=== PATIENT | female | born 1960 | race Caucasian/White ===

== ENCOUNTER 2017-06-09 11:48 | Day surgery (SDC) | payer BC ==
[~2017-06-09] VITALS: Ht 182.9 cm; Wt 123.4 kg
[2017-06-09] MEDS ORDERED: PRAV20 (13:09)
[2017-06-09] MEDS ORDERED: HYDCHL50 (13:10)
[2017-06-09] MEDS ORDERED: LANS15EC (13:10)
[2017-06-09] MEDS ORDERED: XARELTO20 MG (13:10)
[2017-06-09] MEDS ORDERED: METF500 (13:11)
[2017-06-09] MEDS ORDERED: METO25ER (13:11)
[2017-06-09] MEDS ORDERED: FISH OIL 1,0001 EAC1 (13:11)
[2017-11-18] MEDS ORDERED: Lotrel 5-40 MG1 EACH PO (10:08)
[2017-11-18] MEDS ORDERED: MICROZIDE12.5 M1 PO (10:08)
[2017-11-18] MEDS ORDERED: Aygestin5 MG PO (10:08)
[2017-11-18] MEDS ORDERED: Estradiol1 EAC5 (10:09)
[2017-11-18] MEDS ORDERED: VITAMIN D32000 UNIT (10:09)
[2017-11-18] MEDS ORDERED: ASCO500 (10:09)
[2017-11-18] MEDS ORDERED: Aspir 8181 MG PO (10:10)
[2017-11-18] MEDS ORDERED: SIMV10 PO (10:10)
[2017-11-18] MEDS ORDERED: MIRALAX17 GM (10:10)
[2017-11-18] MEDS ORDERED: Ferosul325 MG (10:10)
[2017-11-18] MEDS ORDERED: BISA5EC (10:10)
== END 2017-06-09 14:53 | disposition home or self-care (01) ==
LOC: ORSCSDS 11:48
PROVIDERS: Internal Medicine Gastroenterology
PROC: 0DBK8ZX Excision of Ascending Colon, Via Natural or Artificial Opening Endoscopic, Diagnostic (ICD-10-PCS; principal; 2017-06-09 13:30)
PROC: 0DBM8ZX Excision of Descending Colon, Via Natural or Artificial Opening Endoscopic, Diagnostic (ICD-10-PCS; principal; 2017-06-09 13:30)
PROC: 0DBH8ZX Excision of Cecum, Via Natural or Artificial Opening Endoscopic, Diagnostic (ICD-10-PCS; principal; 2017-06-09 13:30)
DX: Z12.11 Encounter for screening for malignant neoplasm of colon (principal); D12.0 Benign neoplasm of cecum; D12.2 Benign neoplasm of ascending colon; D12.4 Benign neoplasm of descending colon; Z86.010 Personal history of colon polyps; K57.30 Diverticulosis of large intestine without perforation or abscess without bleeding; E11.9 Type 2 diabetes mellitus without complications; I48.91 Unspecified atrial fibrillation; I10 Essential (primary) hypertension; E66.9 Obesity, unspecified; Z68.37 Body mass index [BMI] 37.0-37.9, adult; Z79.01 Long term (current) use of anticoagulants; Z79.84 Long term (current) use of oral hypoglycemic drugs; Z79.899 Other long term (current) drug therapy
CPT/HCPCS: 82947; 88305; 93005; 93010; J2370; J7120

== ENCOUNTER 2017-11-24 13:32 | Day surgery (SDC) | payer BC ==
[~2017-11-24] VITALS: Ht 182.9 cm; Wt 125.2 kg
[~2017-11-24 13:32] MED LIST: ASCO500; Aspir 8181 MG PO; Aygestin5 MG PO; BISA5EC; Estradiol1 EAC5; FISH OIL 1,0001 EAC1; Ferosul325 MG; HYDCHL50; LANS15EC; Lotrel 5-40 MG1 EACH PO; METF500; METO25ER; MICROZIDE12.5 M1 PO; MIRALAX17 GM; PRAV20; SIMV10 PO; VITAMIN D32000 UNIT; XARELTO20 MG
[2017-11-24] MEDS ORDERED: XARELTO20 MG (14:11)
[2017-11-24] MEDS ORDERED: CARV25 (14:12)
[2017-11-24] MEDS ORDERED: METF500C (14:12)
[2017-11-24] MEDS ORDERED: ENTRESTO 24 MG1 EACH (14:12)
[2017-11-24] MEDS ORDERED: PRAV20 (14:13)
[2017-11-24] MEDS ORDERED: LANS15EC (14:13)
[2017-11-24] MEDS ORDERED: Hair, Skin & N1 EACH (14:13)
[2017-11-24] MEDS ORDERED: FLAX (14:14)
[2017-11-24] MEDS ORDERED: IRON150C (14:14)
[2017-11-24] MEDS ORDERED: Apple Cider Vi300 MG (14:15)
[2017-11-24] MEDS ORDERED: Cinnamon3.7 ML (14:15)
== END 2017-11-24 15:39 | disposition home or self-care (01) ==
LOC: ORSCSDS 13:32
PROVIDERS: Internal Medicine Gastroenterology
PROC: 0D758ZZ Dilation of Esophagus, Via Natural or Artificial Opening Endoscopic (ICD-10-PCS; 2017-11-24)
PROC: 0DB58ZX Excision of Esophagus, Via Natural or Artificial Opening Endoscopic, Diagnostic (ICD-10-PCS; principal; 2017-11-24 14:45)
PROC: 0DB68ZX Excision of Stomach, Via Natural or Artificial Opening Endoscopic, Diagnostic (ICD-10-PCS; principal; 2017-11-24 14:45)
DX: R13.10 Dysphagia, unspecified (principal); K31.7 Polyp of stomach and duodenum; K20.9 Esophagitis, unspecified; K29.70 Gastritis, unspecified, without bleeding; I10 Essential (primary) hypertension; E11.9 Type 2 diabetes mellitus without complications; I48.91 Unspecified atrial fibrillation; K21.9 Gastro-esophageal reflux disease without esophagitis; E66.9 Obesity, unspecified; Z68.37 Body mass index [BMI] 37.0-37.9, adult; Z79.01 Long term (current) use of anticoagulants; Z79.84 Long term (current) use of oral hypoglycemic drugs; Z79.899 Other long term (current) drug therapy
CPT/HCPCS: 82947; 87081; 88305; 88312; 88313; 88342; J7120

== ENCOUNTER 2018-04-30 12:09 | Day surgery (SDC) | payer BC ==
[~2018-04-30] VITALS: Ht 182.9 cm; Wt 124.7 kg
[~2018-04-30 12:09] MED LIST changes: +Apple Cider Vi300 MG; +CARV25; +Cinnamon3.7 ML; +ENTRESTO 24 MG1 EACH; +FLAX; +Hair, Skin & N1 EACH; +IRON150C; +METF500C
--- NOTE | 2018-04-30 14:11 | NUR ---
04/30/18 1411 Aviva Delaney DELAYED ENTRY DR. LUJAN TO BEDSIDE TO CONSULT WITH PATIENT & SPOUSE REGARDING SHOULDER BLOCK. SPOUSE ESCORTED TO LOBBY. 1345: DR. LUJAN POSITIONING PATIENT RIGHT LATERAL, W/SINGLE PILLOW ROLLED UNDER PT SHOULDER. SONOSITE UTILIZED FOR NERVE LOCATION. 1346: DR. LUJAN BEGINS PROCEDURE. 02 SAT MONITOR ON PATIENT THROUGHOUT PROCEDURE, VSS. 1349: PROCEDURE COMPLETED. EXCESS LUBRICANT WIPED FROM PT NECK.
--- NOTE | 2018-04-30 15:26 | NUR ---
04/30/18 1526 Bethany Jewell PT DRY HEAVING. REGLAN GIVEN FOR NAUSEA
--- NOTE | 2018-04-30 16:00 | NUR ---
04/30/18 1600 Bethany Jewell EMESIS X1 PRIOR TO TRANSFER INTO [facility]. PT STATES SHE STILL C/O NAUSEA HOWEVER IS TOLERATING ICE CHIPS AND SIPS OF WATER AT THIS TIME. PT DENIES PAIN AND STATES HER FINGERS IN HER LEFT HAND FEEL "TINGLY." PILLOW PROVIDED UNDER LEFT ARM AND POLAR PACK IN PLACE. OXYGEN VIA NASAL CANNULA 2L AT THIS TIME. REPORT GIVEN TO NVP.
== END 2018-04-30 17:43 | disposition home or self-care (01) ==
LOC: ORSCSDS 12:09
PROVIDERS: Orthopaedic Surgery
PROC: 0RNK4ZZ Release Left Shoulder Joint, Percutaneous Endoscopic Approach (ICD-10-PCS; principal; 2018-04-30 13:30)
PROC: 0LQ24ZZ Repair Left Shoulder Tendon, Percutaneous Endoscopic Approach (ICD-10-PCS; principal; 2018-04-30 13:30)
DX: M75.112 Incomplete rotator cuff tear or rupture of left shoulder, not specified as traumatic (principal); M75.42 Impingement syndrome of left shoulder; M75.22 Bicipital tendinitis, left shoulder; M75.52 Bursitis of left shoulder; E11.9 Type 2 diabetes mellitus without complications; E78.00 Pure hypercholesterolemia, unspecified; I10 Essential (primary) hypertension; E66.01 Morbid (severe) obesity due to excess calories; Z68.37 Body mass index [BMI] 37.0-37.9, adult; Z79.899 Other long term (current) drug therapy
CPT/HCPCS: 82947; C1713; J0171; J0690; J1100; J1885; J2250; J2405; J2765; J3010; J7120

== ENCOUNTER → 2019-08-25 | Outpatient (CLI) | payer BC | END | disposition home or self-care (01) | LOC: LAB 10:15 → LAB SHORT 10:15 | DX: E11.42 Type 2 diabetes mellitus with diabetic polyneuropathy (principal) | CPT/HCPCS: 83036 ==

== ENCOUNTER → 2019-08-26 | Outpatient (CLI) | payer BC | END | disposition home or self-care (01) | LOC: LAB 08:12 → LAB SHORT 08:12 | DX: E11.42 Type 2 diabetes mellitus with diabetic polyneuropathy (principal) | CPT/HCPCS: 82043 ==

== ENCOUNTER → 2022-12-26 | Outpatient (CLI) | payer BC ==
[2022-12-26 16:08] LABS: Anion Gap 5 mmol/L (6-16); Blood Urea Nitrogen 12 mg/dL (8-24); Bun/Creatinine Ratio 18.8 (12.0-20.0); CO2, Blood 30 mmol/L (21-32); Calcium, Blood 9.3 mg/dL (8.5-10.1); Chloride, Blood 106 mmol/L (98-108); Creatinine, Blood 0.64 mg/dL (0.40-1.00); Digoxin (Lanoxin) 0.77 ug/mL (0.80-2.00); Glomerular Filtration Rate 99 (60-); Glucose, Blood 117 mg/dL (70-99); Potassium, Blood 4.1 mmol/L (3.5-5.5); Sodium, Blood 141 mmol/L (136-145)
[2022-12-26 16:58] LABS: Creatinine, Urine Random 59.8 mg/dL (27.00-270.00)
[2022-12-26 17:01] LABS: Microalb/Creat Ratio UR, Rand 9.783 mg/g (0.000-30.000); Microalbumin, Random Urine 5.85 mg/L (0.000-20.000)
== END | disposition home or self-care (01) ==
LOC: LAB 10:20 → LAB SHORT 10:20
PROVIDERS: Hospitalist
DX: E11.69 Type 2 diabetes mellitus with other specified complication (principal); I48.21 Permanent atrial fibrillation
CPT/HCPCS: 80048; 80162; 82043; 82570

== ENCOUNTER 2024-01-01 06:53 | Emergency (ER) | payer OTHER, BC ==
[~2024-01-01] VITALS: Ht 177.8 cm; Wt 99.8 kg
[2024-01-01 07:45] LABS: BASOPHILS ABSOLUTE AUTO 0.03 K/mm3 (0.00-0.23); BASOPHILS PERCENT AUTO 0 % (0-2); EOSINOPHILS PERCENT AUTO 3 % (0-6); Hematocrit 47.8 % (33.0-51.0); Hemoglobin 15.8 g/dL (11.5-16.0); IMMATURE GRAN ABSOLUTE AUTO 0.05 K/mm3 (0.00-0.10); IMMATURE GRAN PERCENT AUTO 1 % (0-1); LYMPHOCYTES ABSOLUTE AUTO 1.41 K/mm3 (0.84-5.20); LYMPHOCYTES PERCENT AUTO 19 % (21-46); MONOCYTES PERCENT AUTO 8 % (4-13); Mean Corpuscular HGB 29.1 pg (26.0-34.0); Mean Corpuscular HGB Conc 33.1 g/dL (31.5-36.5); Mean Corpuscular Volume 88 fL (80-100); NEUTROPHILS ABSOLUTE AUTO 5.32 K/mm3 (1.96-9.15); NEUTROPHILS PERCENT AUTO 70 % (41-73); Platelet Count 176 K/mm3 (150-400); RDW Coefficient Variation 13.6 % (11.7-14.2); RDW Standard Deviation 43.5 fL (35.1-46.3); Red Blood Cell Count 5.43 M/mm3 (3.80-5.20); White Blood Cell Count 7.61 K/mm3 (4.00-11.30)
[2024-01-01] MEDS ORDERED: FentaNYL Citrate 50 MCG/ML 2 ML Injection IV ONE (07:55)
[2024-01-01] MEDS ORDERED: Ondansetron HCl 2 MG / ML 2ML Vial IV ONE (07:55)
[2024-01-01 08:13] LABS: Bun/Creatinine Ratio 20.5 (12.0-20.0); Calcium, Blood 9.7 mg/dL (8.5-10.1); Creatinine, Blood 0.73 mg/dL (0.40-1.00); Potassium, Blood 4.1 mmol/L (3.5-5.5)
[2024-01-01] MEDS ORDERED: Percocet 5-3251 EACH PO (08:44)
[2024-01-01 09:39] VITALS: BP 115/71
== END 2024-01-01 10:49 | disposition home or self-care (01) ==
LOC: ER 06:53
PROVIDERS: Emergency Medicine
DX: S20.211A Contusion of right front wall of thorax, initial encounter (principal); I48.91 Unspecified atrial fibrillation; V89.2XXA Person injured in unspecified motor-vehicle accident, traffic, initial encounter; Z79.899 Other long term (current) drug therapy; Z79.84 Long term (current) use of oral hypoglycemic drugs; Z88.5 Allergy status to narcotic agent
CPT/HCPCS: 71260; 80048; 85025; 93005; 93010; 96374-59; 96375-59; 99284-25; J2405; J3010; Q9967

== ENCOUNTER → 2024-03-24 | Outpatient (CLI) | payer BC ==
[~2024-03-24] MED LIST changes: +Percocet 5-3251 EACH PO
[2024-03-24 15:42] LABS: Bun/Creatinine Ratio 15.6 (12.0-20.0); Calcium, Blood 9.6 mg/dL (8.5-10.1); Creatinine, Blood 0.64 mg/dL (0.40-1.00); Potassium, Blood 4.2 mmol/L (3.5-5.5)
== END | disposition home or self-care (01) ==
LOC: LAB 12:14 → LAB SHORT 12:14
PROVIDERS: Hospitalist
DX: I11.0 Hypertensive heart disease with heart failure (principal)
CPT/HCPCS: 80048

== ENCOUNTER → 2024-04-07 | Outpatient (CLI) | payer BC | END | disposition home or self-care (01) | LOC: LAB 17:31 → LAB SHORT 17:31 | DX: M10.9 Gout, unspecified (principal) | CPT/HCPCS: 84550 ==

== ENCOUNTER 2024-05-05 07:21 | Day surgery (SDC) | payer BC ==
[~2024-05-05] VITALS: Ht 182.9 cm; Wt 118.8 kg
[2024-05-05] VITALS (14 sets, daily range): BP systolic 101–138; BP diastolic 42–89
[~2024-05-05 07:21] MED LIST changes: +DIGOX125 MC1 PO; +ENTRESTO 24 MG1 EACH PO; +FURO20 PO; +Lactated Ringer's 1,000 ML IV SCH; +XARELTO20 MG PO
[2024-05-05] MEDS ORDERED: ALLO300 PO (07:38)
--- NOTE | 2024-05-05 07:59 | NUR ---
History, Chart, Medications and Allergies reviewed before start of procedure. Patient confirms NPO status and agrees with scheduled surgery. Patient states colon prep results clear. Pre-Op teaching done. Pt verbalizes understanding. Patient States Post-Procedure ride home has been arranged.
[2024-05-05] MEDS ORDERED: propofoL 20 ML IV ONE (08:20)
--- NOTE | 2024-05-05 08:38 | NUR ---
05/05/24 0838 Martin Lauren CONFIRMED AND REVIEWED H&P, MEDCICATIONS, ALLERGIES, MEDICAL HISTORY, RESPIRATORY HISTORY, VITAL SIGNS, 3-LEAD EKG, CONSENTS, AND PHYSICIAN ORDERS. PATIENT CONFIRMS NPO STATUS AND AGREES WITH SCHEDULED PROCEDURE. MONITOR INTACT WITH CONTINUOUS PULSE OXIMETRY, CAPNOGRAPHY, 3-LEAD EKG, INTERMITTENT BP. SUPPLEMENTAL O2 TO BE TITRATED THROUGHOUT PROCEDURE TO MAINTAIN O2 SATURATION ABOVE 90%. PATIENT DETERMINED TO BE ASA APPROPRIATE FOR PROPOFOL SEDATION PRIOR TO START OF PROCEDURE BY DR. COATES
--- NOTE | 2024-05-05 09:14 | NUR ---
Discharge instructions reviewed with patient. Patient verbalizes understanding. Copy given to patient to take home. Patient States Post-Procedure ride home has been arranged. Discharged via wheelchair to private car for ride home.
== END 2024-05-05 09:15 | disposition home or self-care (01) ==
LOC: ORSCMMR 07:21 → ORD 10:00
PROVIDERS: Internal Medicine Gastroenterology
PROC: 0DBM8ZX Excision of Descending Colon, Via Natural or Artificial Opening Endoscopic, Diagnostic (ICD-10-PCS; principal; 2024-05-05 10:00)
PROC: 0DBN8ZX Excision of Sigmoid Colon, Via Natural or Artificial Opening Endoscopic, Diagnostic (ICD-10-PCS; principal; 2024-05-05 10:00)
DX: Z12.11 Encounter for screening for malignant neoplasm of colon (principal); Z86.0101 Personal history of adenomatous and serrated colon polyps; K63.5 Polyp of colon; K21.9 Gastro-esophageal reflux disease without esophagitis; I48.20 Chronic atrial fibrillation, unspecified; E11.9 Type 2 diabetes mellitus without complications; E78.00 Pure hypercholesterolemia, unspecified; I42.9 Cardiomyopathy, unspecified; Z79.01 Long term (current) use of anticoagulants; Z79.84 Long term (current) use of oral hypoglycemic drugs; Z79.899 Other long term (current) drug therapy
CPT/HCPCS: 82947; 88305; J2704

== ENCOUNTER → 2025-04-05 | Outpatient (CLI) | payer OTHER ==
[~2025-04-05] MED LIST changes: +ALLO300 PO; -Lactated Ringer's 1,000 ML IV SCH
[2025-04-05 17:33] LABS: Creatinine, Urine Random 20.9 mg/dL (27.00-270.00); Microalb/Creat Ratio UR, Rand 29.33 mg/g (0.000-30.000); Microalbumin, Random Urine 6.13 mg/L (0.000-20.000)
== END | disposition home or self-care (01) ==
LOC: LAB SHORT 13:20 → LAB 13:20
PROVIDERS: Hospitalist
DX: E11.69 Type 2 diabetes mellitus with other specified complication (principal)
CPT/HCPCS: 82043; 82570